=== PATIENT | male | born 1995 | race Caucasian/White ===

== ENCOUNTER 2022-06-15 09:40 | Outpatient (CLI) | payer OTHER | END 2022-06-15 23:59 | disposition EMS.NT | LOC: EMS 09:40 | DX: Z04.1 Encounter for examination and observation following transport accident (principal) ==

== ENCOUNTER 2022-06-16 09:56 | Emergency (ER) | payer OTHER ==
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
[2022-06-16] MEDS ORDERED: LIDOCAINE PATCH 5% TOP STA (12:03)
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
[2022-06-16 12:08] VITALS: BP 126/83
== END 2022-06-16 12:14 | disposition home or self-care (01) ==
LOC: ED 09:56
DX: S39.012A Strain of muscle, fascia and tendon of lower back, initial encounter (principal); S16.1XXA Strain of muscle, fascia and tendon at neck level, initial encounter; V89.2XXA Person injured in unspecified motor-vehicle accident, traffic, initial encounter; Y93.89 Activity, other specified; Y92.410 Unspecified street and highway as the place of occurrence of the external cause
CPT/HCPCS: 72100; 72125; 99283; 99284; A9270